=== PATIENT | male | born 1950 | race Asian ===

== ENCOUNTER → 2018-01-17 | Outpatient (CLI) | payer MEDICARE, OTHER ==
[~2018-01-17] MED LIST: FEXPSEER PO; METF500 PO; TERB250 PO
== END | disposition home or self-care (01) ==
LOC: LAB SHORT 07:27 → PLD 07:27 → LAB SHORT 01-20 07:24
DX: L82.1 Other seborrheic keratosis (principal)
CPT/HCPCS: 88305

== ENCOUNTER → 2018-06-03 | Outpatient (CLI) | payer MEDICARE, OTHER | END | disposition home or self-care (01) | LOC: PLD 08:15 → LAB SHORT 08:15 | DX: L82.1 Other seborrheic keratosis (principal) | CPT/HCPCS: 88305 ==

== ENCOUNTER 2022-08-24 08:25 | Day surgery (SDC) | payer MEDICARE, OTHER ==
[~2022-08-24] VITALS: Ht 172.7 cm; Wt 71.1 kg
[~2022-08-24 08:25] MED LIST changes: +Cialis5 MG; +ROSU10TA PO; +Triamcinolone A15 G3 TOP
== END 2022-08-24 10:45 | disposition home or self-care (01) ==
LOC: ORSCSDS 08:25
PROVIDERS: Surgery
PROC: 0DJD8ZZ Inspection of Lower Intestinal Tract, Via Natural or Artificial Opening Endoscopic (ICD-10-PCS; principal; 2022-08-24 09:45)
DX: Z12.11 Encounter for screening for malignant neoplasm of colon (principal); Z86.010 Personal history of colon polyps; E11.9 Type 2 diabetes mellitus without complications; E78.5 Hyperlipidemia, unspecified; N40.0 Benign prostatic hyperplasia without lower urinary tract symptoms; Z79.84 Long term (current) use of oral hypoglycemic drugs; Z79.899 Other long term (current) drug therapy
CPT/HCPCS: 82947; J2704; J7120

== ENCOUNTER 2024-12-15 10:28 | Day surgery (SDC) | payer MEDICARE, OTHER ==
[~2024-12-15] VITALS: Ht 172.7 cm; Wt 70.8 kg
[~2024-12-15 10:28] MED LIST changes: +EPINEPhrine HCl 1 MG/ML 1ML Amp ONE
[2024-12-15] MEDS ORDERED: CeFAZolin Sodium 2,000 MG VIAL ONE (10:48)
[2024-12-15] MEDS ORDERED: Lactated Ringer's 1,000 ML IV ONE ×3 (10:48→11:47)
--- NOTE | 2024-12-15 12:03 | NUR ---
12/15/24 1203 AMY OLIVA PATIENT DEMONSTRATED CORRECT USE OF IS, PULLING VOLUME OF 3500. POST OP TEACHING BEGAN, PATIENT DENIES QUESTIONS. RESTING ON GURNEY, CALL LIGHT IN REACH.
[2024-12-15] MEDS ORDERED: propofoL 20 ML IV ONE (12:11)
[2024-12-15] MEDS ORDERED: Dexamethasone Sod Phos 10 MG/ML 1ML VIAL ONE (12:11)
[2024-12-15] MEDS ORDERED: EPINEPhrine HCl 1 MG/ML 1ML Amp ONE (12:11)
[2024-12-15] MEDS ORDERED: FentaNYL Citrate 50 MCG/ML 2 ML Injection ONE (12:14)
[2024-12-15] MEDS ORDERED: Ketorolac Tromethamine 30mg Vial ONE (12:15)
[2024-12-15] MEDS ORDERED: Tranexamic Acid 100 ML IV ONE (12:35)
[2024-12-15] MEDS ORDERED: Lidocaine HCl 4% 5 ML SDA ONE (13:03)
[2024-12-15] MEDS ORDERED: Ropivacaine 0.5% HCL/PF 5 MG/ML 30ML Vial ONE (13:03)
[2024-12-15] MEDS ORDERED: propofoL 100 ML IV ONE (13:03)
[2024-12-15] MEDS ORDERED: Acetaminophen 500 MG Tab ONE (13:03)
[2024-12-15] MEDS ORDERED: ePHEDrine Sulfate 50 MG/ML 1ML Injection ONE (13:45)
[2024-12-15] MEDS ORDERED: Ondansetron HCl 2 MG / ML 2ML Vial ONE (13:50)
--- NOTE | 2024-12-15 14:08 | NUR ---
12/15/24 1408 Colleen Chavez NOTED PT PRESENTED WITH BRUISE ON LEFT ELBOW PRIOR TO CASE.
--- NOTE | 2024-12-15 15:21 | NUR ---
12/15/24 1521 JORGE KRAMER O2 VIA FACE TENT WAS PLACED AT 10L SHORTLY AFTER ADMIT TO PACU. ORAL AIRWAY WAS TAPED INTO PLACE BY DOCTOR TO KEEP IN PROPER POSITION. CURRENTLY PT IS SLEEPING AND O2 SAT IS 100%. COLORING IS GOOD AND PT APPEARS COMFORTABLE.
[2024-12-15 16:10] VITALS: BP 105/61
--- NOTE | 2024-12-15 16:13 | NUR ---
12/15/24 1613 Jo Ann Ocampo PT IS IN THE RECLINER AT THIS TIME. PT TOLERATING PO FLUIDS WELL AND DENIES NAUSEA. PT STATES HE IS HAVING NO PAIN AT THIS TIME. VSS. CALL LIGHT IN REACH. WARM BLANKET PROVIDED. POLAR UNIT ON AND RUNNING.
== END 2024-12-15 16:55 | disposition home or self-care (01) ==
LOC: ORSCSDS 10:28
PROVIDERS: Orthopaedic Surgery Sports Medicine
PROC: 0LM24ZZ Reattachment of Left Shoulder Tendon, Percutaneous Endoscopic Approach (ICD-10-PCS; principal; 2024-12-15 09:45)
PROC: 0RBK4ZZ Excision of Left Shoulder Joint, Percutaneous Endoscopic Approach (ICD-10-PCS; principal; 2024-12-15 09:45)
DX: M75.112 Incomplete rotator cuff tear or rupture of left shoulder, not specified as traumatic (principal); M75.42 Impingement syndrome of left shoulder; M75.82 Other shoulder lesions, left shoulder; E78.5 Hyperlipidemia, unspecified; E11.9 Type 2 diabetes mellitus without complications; Z79.84 Long term (current) use of oral hypoglycemic drugs; Z79.899 Other long term (current) drug therapy
CPT/HCPCS: 82947; A9270; C1713; J0171; J0690; J1100; J1885; J2003; J2405; J2704; J2795; J3010; J7120